=== PATIENT | female | born 1975 | race Caucasian/White ===

== ENCOUNTER → 2024-07-24 | Day surgery (SDC) | payer BC ==
[~2024-07-24] MED LIST: COLLAGEN PEPTIDES PO; CYCLOBENZAPRINE10 MG PO; FENTANYL CITRATE/PF 100MCG/2 ML INJ ONE; LIDOCAINE HCL 2% LOCAL INJ 5 ML SDV VIAL INJ ONE; METOPROLOL TART25 MG PO; MULTIVITAMIN PO; NP THYROID30 MG PO; ONDANSETRON HCL INJ 2MG/ML 2ML 2 MG/ML VIAL ONE; PROPOFOL IV EMULSION 10 MG/ML 20 ML VIAL ONE
[2024-07-24] MEDS: LACTATED RINGER'S 1,000 ML ONE (08:24)
[2024-07-24 10:10] VITALS: BP 136/82; PULSE 65; RESP 18; O2SAT 100
== END | disposition home or self-care (01) ==
LOC: OR 06:36
PROVIDERS: ATTEND Otolaryngology Otolaryngology/Facial Plastic Surgery
DX: H65.91 Unspecified nonsuppurative otitis media, right ear (principal); H91.8X1 Other specified hearing loss, right ear; I44.7 Left bundle-branch block, unspecified; R01.1 Cardiac murmur, unspecified; I49.9 Cardiac arrhythmia, unspecified; E03.9 Hypothyroidism, unspecified; E66.01 Morbid (severe) obesity due to excess calories; Z01.810 Encounter for preprocedural cardiovascular examination; Z01.818 Encounter for other preprocedural examination; Z79.899 Other long term (current) drug therapy
CPT/HCPCS: 31237; 69436; 71046; 81025; 88305; 93005; J2003; J2405; J2704; J3010; J7121